=== PATIENT | male | born 1955 | race Caucasian/White ===

== ENCOUNTER 2016-09-18 21:19 | Emergency (ER) | payer BC, OTHER ==
[2016-09-19] MEDS ORDERED: HALOPERIDOL 5 MG/ML VIAL ONE (01:33)
[2016-09-19] MEDS ORDERED: DIPHENHYDRAMINE 50 MG/ML VIAL ONE (01:33)
== END 2016-09-19 03:32 | disposition home or self-care (01) ==
LOC: ER 21:19
DX: G43.909 Migraine, unspecified, not intractable, without status migrainosus (principal); F17.210 Nicotine dependence, cigarettes, uncomplicated; K21.9 Gastro-esophageal reflux disease without esophagitis; J44.9 Chronic obstructive pulmonary disease, unspecified; Z79.899 Other long term (current) drug therapy
CPT/HCPCS: 36415; 70450; 71020; 80053; 81001; 82553; 83690; 84484; 85025; 96374; 96375